=== PATIENT | male | born 1980 | race Caucasian/White ===

== ENCOUNTER → 2016-10-01 | Outpatient (CLI) | payer BC ==
[2016-10-01 11:15] LABS: HEMOGLOBIN 15.4 gm/dl (14.0-17.5); RED BLOOD COUNT 5.3 M/UL (4.20-5.50); WHITE BLOOD COUNT 13.8 K/UL (4.5-11.0)
[2016-10-01 11:35] LABS: BUN/CREATININE RATIO 21 (0-10)
== END ==
LOC: CT 10:00
PROVIDERS: Physician Assistant
DX: R10.814 Left lower quadrant abdominal tenderness (principal); K59.00 Constipation, unspecified
CPT/HCPCS: 36415; 80053; 85025; J7050; Q9962

== ENCOUNTER → 2020-07-04 | Outpatient (CLI) | payer OTHER ==
[~2020-07-04] MED LIST: DOXYCYCLINE MON50 M1 PO; DOXYCYCLINE MON50 MG PO; EPIPEN 2-P0.3 MG/0.3 SC; FLONASE 0.05% N16 GM; FLONASE ALLER15.8 ML; HYDROCODON-ACE1 EAC6 PO; IBU800 MG PO; IBUPROFEN800 MG PO; KEFLEX CAP 500500 MG PO; METHOCARBAMOL750 MG PO; NORCO 10-325 T1 EACH PO; OMEPRAZOLE20 M1 PO; OMEPRAZOLE20 MG PO; PERCOCET 7.5-31 EACH PO; TIZANIDINE HCL4 MG PO; VENTOLIN HFA 66.7 GM INH; VENTOLIN INH; VOLTAREN100 GM TD; ZANAFLEX 4 MG TA4 MG PO
[2020-07-04 09:13] LABS: HEMOGLOBIN 17.4 gm/dl (14.0-17.5); RED BLOOD COUNT 5.99 M/UL (4.20-5.50); WHITE BLOOD COUNT 7.1 K/UL (4.5-11.0)
[2020-07-04 09:28] LABS: BUN/CREATININE RATIO 14 (0-10)
== END ==
LOC: OPSV2 08:00
PROVIDERS: Orthopaedic Surgery
DX: Z11.52 Encounter for screening for COVID-19 (principal)
CPT/HCPCS: 36415; 80048; 85025

== ENCOUNTER → 2020-07-08 | Day surgery (SDC) | payer OTHER ==
[~2020-07-08] VITALS: Ht 188 cm; Wt 129.7 kg
== END | disposition home or self-care (01) ==
LOC: OR 07:57
PROVIDERS: Orthopaedic Surgery
PROC: 3E0T3GC Introduction of Other Therapeutic Substance into Peripheral Nerves and Plexi, Percutaneous Approach (ICD-10-PCS; 2020-07-08)
PROC: 0PSH04Z Reposition Right Radius with Internal Fixation Device, Open Approach (ICD-10-PCS; principal; 2020-07-08 11:00)
DX: S52.301 Unspecified fracture of shaft of right radius (principal); G89.18 Other acute postprocedural pain; J44.9 Chronic obstructive pulmonary disease, unspecified; F17.210 Nicotine dependence, cigarettes, uncomplicated; K21.9 Gastro-esophageal reflux disease without esophagitis; E66.01 Morbid (severe) obesity due to excess calories; Z68.37 Body mass index [BMI] 37.0-37.9, adult; Z79.1 Long term (current) use of non-steroidal anti-inflammatories (NSAID); Z79.899 Other long term (current) drug therapy; Z91.030 Bee allergy status; X58.XXXD Exposure to other specified factors, subsequent encounter; Z20.822 Contact with and (suspected) exposure to COVID-19
CPT/HCPCS: 73100; 76000; C1713; C1762; J0592; J0690; J1100; J2001; J2405; J2704; J2795; J7120

== ENCOUNTER 2020-08-18 09:59 | Day surgery (SDC) | payer OTHER ==
[~2020-08-18] VITALS: Ht 188 cm; Wt 129.3 kg
[~2020-08-18 09:59] MED LIST changes: -DOXYCYCLINE MON50 M1 PO; -FLONASE ALLER15.8 ML; -OMEPRAZOLE20 M1 PO; -TIZANIDINE HCL4 MG PO; -VENTOLIN INH
[2020-08-18 10:39] LABS: HEMOGLOBIN 16.1 gm/dl (14.0-17.5); RED BLOOD COUNT 5.64 M/UL (4.20-5.50); WHITE BLOOD COUNT 5.7 K/UL (4.5-11.0)
[2020-08-18 10:54] LABS: BUN/CREATININE RATIO 16 (0-10)
[2020-08-18] MEDS ORDERED: DOXYCYCLINE MON50 M1 PO (11:07)
[2020-08-18] MEDS ORDERED: IBUPROFEN800 MG PO (11:08)
[2020-08-18] MEDS ORDERED: HYDROCODON-ACE1 EAC6 PO (11:09)
[2020-08-18] MEDS ORDERED: TIZANIDINE HCL4 MG PO (11:10)
[2020-08-18] MEDS ORDERED: OMEPRAZOLE20 M1 PO (11:10)
[2020-08-18] MEDS ORDERED: VENTOLIN INH (11:12)
[2020-08-18] MEDS ORDERED: FLONASE ALLER15.8 ML (11:14)
[2020-08-18] MEDS ORDERED: PERCOCET 7.5-31 EACH PO (17:50)
--- NOTE | 2020-08-19 08:31 | NUR ---
PATIENT REFUSE KERRI AND JONNATHAN ROCK. INFORMED OF THE IMPORTANCE OF THE 2 AND CONT TO REFUSE
--- NOTE | 2020-08-19 12:08 | NUR ---
PATIENT RECEIVED A NERVE BLOCK RIGHT ARM. APPLIED BANDAID ON RIGHT SHOULDER.
--- NOTE | 2020-08-19 13:33 | NUR ---
PATIENT SLEEPING COMFORTABLY AT THIS TIME
--- NOTE | 2020-08-20 10:32 | NUR ---
INSTRUCTED PATIENT ON IMPORTANCE OF TAKING MEDS DIRECTED. STOP MOTRIN AND TIZANADINE, PAIN MEDS CHANGED . E-SCRIPTED TO PHARMACY NIRALI DOWNEY, KEEP FOLLOW UP APPOINTMENTS. VERBALIZED UNDERSTANDING BARBARA GERONIMO R.N.
== END 2020-08-20 12:35 | disposition home or self-care (01) ==
LOC: OR 09:59 → M/S 19:35 → OR 08-20 12:35
PROVIDERS: Orthopaedic Surgery
DX: S52.551A Other extraarticular fracture of lower end of right radius, initial encounter for closed fracture (principal); J44.9 Chronic obstructive pulmonary disease, unspecified; F17.219 Nicotine dependence, cigarettes, with unspecified nicotine-induced disorders; J45.909 Unspecified asthma, uncomplicated; K21.9 Gastro-esophageal reflux disease without esophagitis; G89.18 Other acute postprocedural pain; Z82.3 Family history of stroke; V89.2XXA Person injured in unspecified motor-vehicle accident, traffic, initial encounter
CPT/HCPCS: 36415; 71045; 73110; 76000; 80048; 85027; 93005; C1713; J0171; J0690; J1100; J1170; J2001; J2250; J2405; J2704; J2710; J2795; J3010; J3370; J7120

== ENCOUNTER → 2022-01-25 | Outpatient (CLI) | payer BC ==
[~2022-01-25] MED LIST changes: +DOXYCYCLINE MON50 M1 PO; +FLONASE ALLER15.8 ML; +OMEPRAZOLE20 M1 PO; +TIZANIDINE HCL4 MG PO; +VENTOLIN INH
== END ==
LOC: EXRD 14:30
DX: R13.10 Dysphagia, unspecified (principal)
CPT/HCPCS: 76536